=== PATIENT | female | born 1965 | race Caucasian/White ===

== ENCOUNTER 2021-02-26 09:05 | Inpatient (IN) | payer OTHER ==
[2021-02-26] VITALS (10 sets, daily range): BP systolic 80–112; BP diastolic 56–70
[~2021-02-26] VITALS: Ht 175.3 cm; Wt 79.8 kg
[~2021-02-26 09:05] MED LIST: ATACAND16 MG PO; DYAZIDE1 CAP PO; ESTRACE2 M1 PO; HYDROCO/APAP1 TA9 PO; INVOKAMET 150-11 TAB PO; LORTAB 5/3255 MG PO; NOVOLIN R IJ; PROTONIX40 M2 PO; VICTOZA18 MG/3 ML SC
--- NOTE | 2021-02-26 09:18 | NUR ---
TO ROOM VIA WHEELCHAIR.
[2021-02-26 09:43] LABS: HEMATOCRIT 51.7 % (37.0-47.0); HEMOGLOBIN 17.5 g/dl (12.0-16.0); IMMATURE GRANULOCYTES 0.4 % (0.0-5.0); MEAN CELL VOLUME 91.5 fL CALC (80.0-100.0); MEAN CORPUSCULAR HGB CONC 33.8 g/dL CAL (32.0-36.0); NEUT# 10.34 thou/uL (2.00-7.15); RED BLOOD COUNT 5.65 mill/uL (4.20-5.60); RED CELL DISTRI WIDTH 13.2 % (11.5-15.5)
[2021-02-26 09:56] LABS: ALBUMIN 4.5 g/dL (3.2-5.0); ALKALINE PHOSPHATASE 59 u/l (38-126); ANION GAP 16 (6-22 (CALC)); BILIRUBIN, TOTAL 1.4 mg/dL (0.0-1.4); BUN 20 mg/dL (7-17); BUN/CREATININE RATIO 20 (12-20 (CALC)); CARBON DIOXIDE 24 mmol/l (22-30); CHLORIDE 99 mmol/l (95-108); GFR 57 ML/MIN (>=60 (CALC)); GFR FOR AFR.AMER. > 60 ML/MIN (>=60 (CALC)); POTASSIUM 3.7 mmol/l (3.5-5.1); SGOT/AST 20 u/l (14-36); SODIUM 136 mmol/l (137-146); TOTAL PROTEIN 7.1 g/dL (6.3-8.2)
[2021-02-26 10:08] LABS: MYOGLOBIN 33 ng/mL (0 - 62)
--- NOTE | 2021-02-26 10:17 | NUR ---
IV MEDS INFUSING WITHOUT DIFFICULTY. PT REMAINS IN A-FIB HR 132, CARDIZEM DRIP STARTED, PT TOLERATING WELL. STABLE ON MONITOR. NO DISTRESS NOTED. CALL LIGHT WITHIN REACH. HEART MONITOR AND PADS IN PLACE.
[2021-02-26] MEDS ORDERED: TRULICITY0.75 MG/0. IM (10:20)
[2021-02-26] MEDS ORDERED: ALENDRONATE35 MG PO (10:20)
[2021-02-26] MEDS ORDERED: GABAPENTIN100 MG PO (10:21)
[2021-02-26] MEDS ORDERED: FARXIGA10 MG PO (10:21)
[2021-02-26] MEDS ORDERED: SPIRONOLACTONE50 MG PO (10:22)
[2021-02-26] MEDS ORDERED: NP THYROID60 MG PO (10:23)
[2021-02-26] MEDS ORDERED: PREDNISONE10 MG PO (10:23)
[2021-02-26] MEDS ORDERED: FUROSEMIDE20 MG PO (10:23)
[2021-02-26] MEDS ORDERED: CRESTOR5 M1 PO (10:24)
[2021-02-26] MEDS ORDERED: [UNRECOGNIZED DRUG - OTHER] XX (10:24)
--- NOTE | 2021-02-26 11:32 | NUR ---
IV MEDS CONTINUE TO INFUSE. HR 115. NO DISTRESS. DAUGHTER AT BEDSIDE.
--- NOTE | 2021-02-26 13:02 | NUR ---
REPORT CALLED TO MARK RICHARDSON IN ICU.
--- NOTE | 2021-02-26 13:30 | NUR ---
ECHO BEING DONE AT BEDSIDE IN ER. WILL TRANSPORT PT TO ICU UPON COMPLETION.
--- NOTE | 2021-02-26 15:00 | NUR ---
PT ARRIVES TO ROOM 5 IN ICU ACCOMPANIED BY BASSEM RN. PT IS ALERT AND ORIENTED X 3, AMBULATORY, IN NO ACUTE DISTRESS. HR SHOWS ATRIAL FIBRILLATION WITH RATE 110-125. CARDIZEM DRIP AT 15 MG/HR. DAUGHTER ARRIVES WITH PT.
--- NOTE | 2021-02-26 16:34 | NUR ---
PT HAS CONVERTED TO SR. EKG DONE TO CONFIRM. CARDIZEM DRIP REDUCED TO 10 MG/HR.
--- NOTE | 2021-02-26 17:32 | NUR ---
PT REFUSED ACCU CHECK
--- NOTE | 2021-02-26 17:44 | NUR ---
PT UPDATED ON RESULTS FROM ECHO, RESTS IN THE BED IN NO DISTRESS. DAUGHTERS HAVE VISITED SINCE HER ARRIVAL TO ICU.
--- NOTE | 2021-02-26 20:36 | NUR ---
PATIENT REQUESTS LORTAB FOR HEADACHE, TURKEY SANDWICH, PROVIDED. NO ACUTE DISTRES SSHOWN. CARDIZEM DRIP INFUSING AT 5 MG/HR. CALL LIGHT WITHIN REACH.
[2021-02-27] VITALS (15 sets, daily range): BP systolic 81–110; BP diastolic 42–71
--- NOTE | 2021-02-27 00:21 | NUR ---
LOVENOX INJECTION GIVEN. PATIENT IN NO ACUTE DISTRESS.
[2021-02-27 06:04] LABS: ANION GAP 9 (6-22 (CALC)); BUN 17 mg/dL (7-17); BUN/CREATININE RATIO 22 (12-20 (CALC)); CALCULATED LDLCHOLESTEROL 66 mg/dL (62-129 (CALC)); CARBON DIOXIDE 26 mmol/l (22-30); CHLORIDE 104 mmol/l (95-108); CHOLESTEROL HDL RATIO 4.2 (<4.4 (CALC)); CREATININE 0.8 mg/dL (0.5-1.0); GFR > 60 ML/MIN (>=60 (CALC)); GFR FOR AFR.AMER. > 60 ML/MIN (>=60 (CALC)); HDL CHOLESTEROL 32 mg/dL (>=40); MAGNESIUM 2.1 mg/dL (1.6-2.3); POTASSIUM 3.9 mmol/l (3.5-5.1); SODIUM 136 mmol/l (137-146); TOTAL CHOLESTEROL 131 mg/dl (0-199); TOTAL TRIGLYCERIDES 166 mg/dl (30-149); VLDL CHOLESTROL 33 mg/dl (2-49 (CALC))
[2021-02-27 06:09] LABS: MEAN CELL VOLUME 93.7 fL CALC (80.0-100.0); MEAN CORPUSCULAR HGB 31.4 pG CALC (26.0-32.0); MEAN CORPUSCULAR HGB CONC 33.6 g/dL CAL (32.0-36.0); RED BLOOD COUNT 4.58 mill/uL (4.20-5.60); RED CELL DISTRI WIDTH 13.4 % (11.5-15.5)
[2021-02-27 06:11] LABS: HEMATOCRIT 42.9 % (37.0-47.0); HEMOGLOBIN 14.4 g/dl (12.0-16.0)
--- NOTE | 2021-02-27 06:25 | NUR ---
PT REFUSED ACCU CHECK
--- NOTE | 2021-02-27 08:02 | NUR ---
PT SEEN AWAKE, ALERT, ORIENTED X 3. LUNGS CLEAR, RA. CARDIZEM AT 5 MG/HR, RATE CONTINUES TO BE SINUS RHYTHM. PT AMBULATORY IN ROOM WITHOUT DIFFICULTY.
--- NOTE | 2021-02-27 10:01 | NUR ---
PT SEEN BY DR CORDERO THIS MORNING, WELL TOMA FROM DR VEGA'S OFFICE. PLAN IS TO TRANSFER PT TO [facility] FOR CARDIAC CATH EARLIER THAN HER SCHEDULED MARCH 12 APPOINTMENT. PT REMAINS STABLE, IN SINUS RHYTHM, RATE OF 83. CARDIZEM CONTINUES AT 5 MG/HR.
--- NOTE | 2021-02-27 13:09 | NUR ---
PT CONTINUES BEFORE, AMBULATING IN ROOM WITHOUT DIFFICULTY. [facility], WAITING FOR ROOM ASSIGNMENT. PT PROVIDED LOPRESSOR BY MOUTH, THEN CARDIZEM IV WAS DISCONTINUED 30 MINUTES LATER.
--- NOTE | 2021-02-27 17:11 | NUR ---
PT HAS BEEN TRANSFERRED TO [facility]IA [facility]. PT LEAVES [facility] IN STABLE CONDITION, CYTOGENETICS TECHNOLOGIST IN PLACE, NSR. NO CHEST PAIN OR SHORTNESS OF BREATH.
--- NOTE | 2021-02-27 17:46 | NUR ---
REPORT PROVIDED TO KIARA FLORES VIA PHONE, , PT TO ROOM 774B.
[2021-03-02 10:26] VITALS: BP 102/70
== END 2021-02-27 17:15 | disposition short-term general hospital (02) | DRG 310 ==
LOC: ED 09:05 → ED-I 10:58 → ED 12:00 → ICU 12:01
PROVIDERS: Emergency Medicine; Nurse Practitioner; ADMIT Hospitalist; ATTEND Hospitalist
DX: I48.91 Unspecified atrial fibrillation (principal); I25.119 Atherosclerotic heart disease of native coronary artery with unspecified angina pectoris; I48.92 Unspecified atrial flutter; I10 Essential (primary) hypertension; E11.42 Type 2 diabetes mellitus with diabetic polyneuropathy; I34.0 Nonrheumatic mitral (valve) insufficiency; E78.5 Hyperlipidemia, unspecified; M35.3 Polymyalgia rheumatica; G47.33 Obstructive sleep apnea (adult) (pediatric); E03.9 Hypothyroidism, unspecified; K21.9 Gastro-esophageal reflux disease without esophagitis; Z98.84 Bariatric surgery status; Z20.822 Contact with and (suspected) exposure to COVID-19
CPT/HCPCS: J1160; J1650